=== PATIENT | female | born 1960 | race Two or more races ===

== ENCOUNTER 2019-06-27 20:00 | Emergency (ER) | payer BC, SELFPAY ==
[2019-06-27 20:02] VITALS: BP 160/94; PULSE 85; RESP 20; TEMP 36.7; O2SAT 98; BMI 33.6
--- NOTE | 2019-06-27 20:06 | XR_ITS ---
WS: [id number] Portable AP upright chest, 06/27/2019 Clinical Data: cp Comparison: None. Findings: No nodules, masses or effusions are seen. The heart is normal. The pulmonary vascularity is not increased. No pneumonia or pneumothorax is seen. The aortic arch and descending aorta are tortuo us. XR/XR chest 1V portable [id number] Impression: Atherosclerosis.
[2019-06-27 20:35] LABS: INR 0.87 (0.8-1.2)
[2019-06-27 20:44] LABS: Alanine Aminotransferase 15 U/L (0-33); Albumin Level 4.4 g/dL (3.5-5.2); Alkaline Phosphatase 88 IU/L (35-105); Anion Gap 16.8 (5-19); Aspartate Amino Transferase 15 U/L (0-32); Blood Urea Nitrogen 15 mg/dL (6-20); Calcium 9.8 mg/Dl (8.6-10.0); Carbon Dioxide 23 mmol/L (22-29); Chloride 103 mmol/L (98-107); Globulin 2.3 g/dL (1.3-4.6); Glomerular Filtration Rate 74.2 mL/min (90-130); Glucose 124 mg/dL (74-109); Potassium 3.8 mmol/L (3.5-5.1); Sodium 139 mmol/L (136-145); Total Bilirubin 0.3 mg/dL (0.15-1.2); Total Protein 6.7 g/dL (6.6-8.7)
[2019-06-27 20:49] LABS: Troponin(5th) Baseline 9 ng/mL (0-10)
[2019-06-27 21:36] LABS: Troponin 5 2HR 9.06 ng/mL (0-10); Troponin 5 2HR Delta 0.06 ABS# (0-10)
--- NOTE | 2019-06-27 22:06 | ECG_ITS ---
Measurements Intervals [place] Rate: 75 P: 5 CA: 151 QRS: -1 QRSD: 103 T: 69 QT: 412 QTc: 461 SINUS RHYTHM VOLTAGE CRITERIA FOR LVH [MEETS CRITERIA IN ONE OF: R(aVL), S(V1), R(V5), R (V5/V6)+S(V1)] NONSPECIFIC T-WAVE ABNORMALITY No previous ECG available for comparison Electronically Signed On 06-28-2019 13:39:14 CORPORATE COUNSELOR by Bre Hernandez M.D. [email or web address]
[2019-06-28 01:37] LABS: Basophils # 0.1 10^3/uL (0.0-0.1); Basophils % 0.8 %; Eosinophils # 0.1 10^3/uL (0.0-0.8); Eosinophils % 1.6 %; Hematocrit 44.4 % (37.0-47.0); Hemoglobin 14.3 g/dL (11.5-15.3); Lymphocytes # 2.6 10^3/uL (0.8-4.8); Lymphocytes % 32.4 %; Mean Corpuscular HGB Conc 32.2 g/dL (30.0-36.0); Mean Corpuscular Hemoglobin 29.9 pg (28.0-34.0); Mean Corpuscular Volume 92.9 fL (81-99); Mean Platelet Volume 12.5 fL (7.4-10.4); Monocytes # 0.7 10^3/uL (0.2-0.9); Monocytes % 8.5 %; Neutrophils # 4.5 10^3/uL (1.8-7.7); Neutrophils % 56.4 %; Nucleated Red Blood Cells % 0 %; Platelet Count 316 10^3/cmm (130-400); Red Blood Count 4.78 10^6/uL (4.1-5.3); Red Cell Distribution Width 13.5 % (12.1-15.1)
== END 2019-06-27 22:56 | disposition left against medical advice (07) ==
LOC: ER 21:02
PROVIDERS: Emergency Medicine; Emergency Provider Emergency Medicine
DX: Z53.21 Procedure and treatment not carried out due to patient leaving prior to being seen by health care provider (principal)
CPT/HCPCS: 36415; 71045; 80053; 84484; 85025; 85610; 93005; 99281

== ENCOUNTER 2019-07-27 07:33 | Outpatient (CLI) | payer BC, SELFPAY ==
--- NOTE | 2019-07-27 07:50 | ECG_ITS ---
NAME OF STUDY: LEXISCAN SESTAMIBI STRESS TEST INDICATION: Chest Pain, NOTE: Please note that this is the electrocardiogram portion of the Lexiscan/Sestamibi stress test. The perfusion scan will be documented separately. DATA: Baseline heart rate was 65 beats per minute. Baseline blood pressure was 173/107 millimeters of mercury. Target heart rate was 164. Maximum heart rate achieved was 118. which was 71% of the predicted target heart rate. Maximum blood pressure was 116/39 millimeters of mercury. The reason for ending the test was completion of the protocol. The patient experienced shortness of breath during the past which was then resolved. ELECTROCARDIOGRAM: BASELINE: Sinus rhythm. Normal axis. Otherwise, no ST-T changes suggestive of ischemia noted. No arrhythmia noted. EXERCISE: After Lexiscan injection, no ST-T changes suggestive of ischemic noted. No arrhythmia noted. CONCLUSION: Please note due to baseline abnormality of the EKG specificity and sensitivity of the EKG portion of LexiScan MIBI stress test will be low 1. EKG not suggestive of ischemia 2. Lexiscan injection unremarkable. 3. Perfusion scan will be documented separately. Electronically Signed On 07-27-2019 19:54:55 SUPERVISOR SIGN SHOP by Ronald Peoples M.D. [email or web address]
--- NOTE | 2019-07-27 07:51 | NMCV_ITS ---
NM josesito perf SPECT r/s* [id number] Shannon Fatima Age: 58 Gender: F : 1960 Exam Date: 07/27/2019 07:51 Ordering Phys: Kristina Brady XX Technologist: NADIA Haque Exam Location: [facility] Indications: CHEST PAIN STRESS TEST Please see separate stress test report in [facility] for full findings IMAGE PROTOCOL Rest/Stress 1 Lexiscan Day Radiopharmaceutical Dose (mCi) Administration Site Administered by Rest: Tc-99m 10.9 IV NADIA Haque Sestamibi Stress:Tc-99m 32.4 IV NADIA Arora Sestamibi Rest: 27-Jul-2019 60 Discovery 630 Stress: 27-Jul-2019 30 Discovery 630 0.4mg Lexiscan. Images obtained in supine and prone position. SPECT RESULTS Technical Quality: Good Raw Data Analysis: Breast attenuation, Subdiaphragmatic activity Image Corrections: Patient motion artifact - motion correction applied to stress images. Summed Stress Score: 3 Summed Rest Score: 3 Summed Difference Score: 3 PERFUSION FINDINGS Small to moderate area of decreased aseptic were noted in the basal inferolateral and mid anterolateral regions. Some reversibility was noted in these regions FUNCTIONAL RESULTS (calculated via Gated SPECT) Stress Image LV EF (%): 47 Stress EDV (mL):156 TID: 0.9 Stress ESV (mL):83 FUNCTIONAL FINDINGS: Segmental wall motion analysis revealing mild hypokinesia of the LV apex. IMPRESSIONS 1. Myocardial perfusion imaging revealing small to moderate area of decreased tracer uptake in the inferolateral and anterolateral regions with some reversibility, may suggest myocardial scarring with ischemia in the distribution of the circumflex/left anterior descending artery territory . 2. Slightly diminished LV ejection fraction of 47%. 3. LV wall motion analysis revealing mild hypokinesia of the LV apex. 4. Moderately dilated LV cavity with an end-systolic volume of 83 mL. No similar previous studies are available for comparison. Dr Johanny Michelle MD FAC (Electronically Signed) Final Date: 27 July 2019 20:44 S
[2019-07-27 08:14] VITALS: BMI 34.1
[2019-07-27] MEDS: regadenoson 0.4 Mg/5 ml Syringe IVP (09:45)
[2019-07-27 10:09] VITALS: BP 211/116; PULSE 80
--- NOTE | 2019-07-27 10:22 | PC.NURSE ---
STRESS TEST NOTE THE PATIENT'S BLOOD PRESSURE WAS 172/107 PRIOR TO STARTING THE STRESS TEST. THE PATIENT HELD HER 2 BP MEDS THIS AM BECAUSE SHE WASN'T FOR SURE IF SHE SHOULD TAKE THEM. THIS NURSE HAD HER TAKE HER LISINOPRIL AND HCTZ. DR ODELL WAS NOTIFIED IN PERSON AND VERBAL ORDERS WERE RECEIVED TO CONTINUE WITH THE LEXISCAN SESTAMIBI STRESS TEST.
== END 2019-07-27 07:34 | disposition home or self-care (01) ==
LOC: CDL 07:38
PROVIDERS: PCP Nurse Practitioner Family; Visit Provider Nurse Practitioner Family
DX: R07.9 Chest pain, unspecified (principal)
CPT/HCPCS: 78452; 93017; A9500; J2785

== ENCOUNTER 2019-08-18 15:00 | Outpatient (CLI) | payer BC, SELFPAY | END 2019-08-18 15:01 | disposition home or self-care (01) | LOC: SLEEP 08-19 09:00 | PROVIDERS: PCP Nurse Practitioner Family; Visit Provider Internal Medicine Cardiovascular Disease | DX: G47.33 Obstructive sleep apnea (adult) (pediatric) (principal) | CPT/HCPCS: G0399 ==

== ENCOUNTER 2019-08-26 09:57 | Outpatient (CLI) | payer BC, SELFPAY ==
--- NOTE | 2019-08-26 10:15 | USCV_ITS ---
Shannon Fatima Age: 58 Gender: F : 1960 Exam Date: 08/26/2019 10:23 Ordering Phys: Bre Hernandez MD ([email or web address]) Technologist: Marifer Augustin Exam Location: [facility] [place] Indication: ACCELERATED HPERTENSION BP: / HR: 71 Rhythm: Sinus Technical Quality: Adequate MEASUREMENTS (Male / Female) Normal Values 2D ECHO LV Diastolic Diameter PLAX 4.1 cm 4.2 - 5.9 / 3.9 - 5.3 cm LV Systolic Diameter PLAX 2.8 cm LV Chamber Size 3.1 cm IVS Diastolic Thickness 1.7 cm 0.6 - 1.0 / 0.6 - 0.9 cm IVS Systolic Thickness 1.9 cm LVPW Diastolic Thickness 1.2 cm 0.6 - 1.0 / 0.6 - 0.9 cm LVPW Systolic Thickness 1.8 cm RV Chamber Size 3.3 cm LVOT Diameter 2.0 cm LV Ejection Fraction 2D Teich 61.4 % LV Ejection Fraction MOD 2C 49.9 % LV Ejection Fraction 2C AL 57.6 % LA Diameter 3.1 cm LA Width 3.1 cm LA Height 5.0 cm RA Width 3.1 cm RA Height 4.0 cm Aorta at Sinotubular Diameter 3.1 cm M-MODE LV Diastolic Diameter MM 4.3 cm 4.2 - 5.9 / 3.9 - 5.3 cm LV Systolic Diameter MM 2.1 cm LV Ejection Fraction MM Teich 82.2 % IVS Diastolic Thickness MM 0.9 cm 0.6 - 1.0 / 0.6 - 0.9 cm IVS Systolic Thickness MM 1.3 cm LVPW Diastolic Thickness MM 1.1 cm 0.6 - 1.0 / 0.6 - 0.9 cm LVPW Systolic Thickness MM 1.7 cm RV Diastolic Diameter MM 1.2 cm Aortic Annulus Diameter 2.6 cm LA Ao Ratio MM 1.2 MV E Point Septal Separation 0.3 cm DOPPLER AV Peak Velocity 142.0 cm/s LVOT Peak Velocity 104.0 cm/s AV Area Cont Eq vti 2.6 cm squared AV Area Cont Eq pk 2.3 cm squared MV Area PHT 4.3 cm squared Mitral E to A Ratio 0.7 MV E' Velocity 5.0 cm/s Mitral E to MV E' Ratio 8.4 Mitral E to LV E' Lateral Ratio 12.9 Mitral E to LV E' Septal Ratio 6.2 TR Peak Velocity 158.2 cm/s TR Peak Gradient 10.0 mmHg TR Mean Velocity 118.3 cm/s TR Mean Gradient 6.3 mmHg TR Velocity Time Integral 38.9 cm TV Peak E Velocity 52.0 cm/s Right Atrial Pressure 3.0 mmHg Pulmonary Artery Systolic Pressu 13.0 mmHg PV Peak Velocity 62.0 cm/s RV Acceleration Time 0.2 s RV Ejection Time 0.4 s RV AcT/ET 0.5 FINDINGS Left Ventricle Normal left ventricular cavity size. Increased left ventricular wall thickness. Moderate concentric left ventricular hypertrophy. Normal left ventricular systolic function. Left ventricular ejection fraction is estimated at 65 %. No regional wall motion abnormalities. Grade I/IV diastolic dysfunction (abnormal relaxation filling pattern), normal to mildly elevated filling pressures. Right Ventricle Normal right ventricular size and systolic function. Tricuspid valve regurgitant jet is inadequate for estimation of right ventricular systolic pressure. Right Atrium Normal right atrial size. Right atrial pressure estimated at 3 mmHg. Left Atrium Upper normal left atrial size. Mitral Valve Mildly thickened mitral valve. No mitral valve stenosis. Trace mitral valve regurgitation. Aortic Valve Aortic valve not well visualized. No aortic valve stenosis. No aortic valve regurgitation. Tricuspid Valve Structurally normal tricuspid valve. No tricuspid valve stenosis. Trace tricuspid valve regurgitation. Pulmonic Valve Pulmonic valve not well visualized. No pulmonary valve stenosis. No significant pulmonary valve regurgitation. Pericardium Trivial pericardial effusion. No evidence of hemodynamic compromise. Aorta Normal-sized aortic root. CONCLUSIONS 1. Normal left ventricular cavity size. Moderate concentric left ventricular hypertrophy. Normal left ventricular systolic function. Left ventricular ejection fraction is estimated at 65 %. No regional wall motion abnormalities. Grade I/IV diastolic dysfunction (abnormal relaxation filling pattern), normal to mildly elevated filling pressures. 2. Normal right ventricular size and systolic function. 3. Right atrial pressure estimated at 3 mmHg. 4. No significant valvular abnormality. 5. No prior similar studies to compare. Bre Hernandez MD (Electronically Signed) Final Date: 29 August 2019 15:45 S
== END 2019-08-26 09:58 | disposition home or self-care (01) ==
PROVIDERS: Family Provider Nurse Practitioner Family; PCP Nurse Practitioner Family; Visit Provider Internal Medicine Cardiovascular Disease
DX: I10 Essential (primary) hypertension (principal); I08.1 Rheumatic disorders of both mitral and tricuspid valves
CPT/HCPCS: 93306

== ENCOUNTER → 2019-09-05 08:19 | Outpatient (BNVA) | payer BC, SELFPAY | PROVIDERS: PCP Nurse Practitioner Family; Visit Provider Internal Medicine Cardiovascular Disease | DX: I10 Essential (primary) hypertension (principal) | CPT/HCPCS: 80048; 83735; 83880 ==

== ENCOUNTER 2022-01-14 05:58 | Emergency (ER) | payer BC, SELFPAY ==
[2022-01-14 06:01] VITALS: BMI 34.4
[2022-01-14 06:05] VITALS: BP 118/76; PULSE 85; RESP 18; O2SAT 95
--- NOTE | 2022-01-14 06:06 | XRR_ITS ---
PROCEDURE INFORMATION: Exam: XR Right Knee Exam date and time: 01/14/2022 6:14 AM Age: 61 years old Clinical indication: Injury or trauma; Fall; Blunt trauma; Right; Injury details: Fell last pm pain to knee; Additional info: Pain/fall TECHNIQUE: Imaging protocol: Radiologic exam of the Right knee. Views: 3 views. COMPARISON: No relevant prior studies available. FINDINGS: Bones/joints: Degenerative change and joint effusion. No acute bony injury or malalignment in the visualized right knee. Soft tissues: No radiopaque foreign body. XR/XR knee RT 3V* [id number] IMPRESSION: Joint effusion, without acute bony injury.
--- NOTE | 2022-01-14 06:07 | ED_ITS ---
HPI - Fall General: Chief Complaint: Fall Stated Complaint: fall unable to walk Time Seen by Provider: 01/14/22 06:06 Source: patient Mode of arrival: wheelchair History of Present Illness: 61-year-old female presents emergency room with complaint of right knee pain. She was going up some stairs yesterday felt a popping sensation has not been able to bear weight since. No previous injury or surgeries to knee no other injuries at home. Strike her head she did not lose consciousness. MD complaint: fall Onset (ago): hour(s) Fall from: standing Place fall occurred: home Loss of consciousness: None Prolonged down time: no Symptoms prior to fall: none Context: tripped/slipped and other (Right knee popped ) Location of injury - extremities: Right: knee Severity: mild Quality: sharp Associated symptoms-after fall: Denies abdominal pain, chest pain, confusion, difficulty walking, headache(s), hematuria, lightheadedness, neck pain, numbness, short of breath, vertigo or weakness Review of Systems Const: Denies: fever(s), chills, body aches, change in appetite, fatigue or malaise ENMT: Denies: throat pain, ear or mastoid pain, nasal discharge or nasal congestion Card: Denies: chest pain or lightheadedness Resp: Denies: dyspnea, productive cough or non-productive cough GI: Denies: abdominal pain : Denies: hematuria Musc: Reports: joint pain and joint swelling; Denies: neck pain Skin/Breast: Denies: rash or pruritus Neuro: Denies: headache(s), difficulty walking, vertigo or confusion PFSH ED PFSH: Medical History HTN (hypertension) Obesity Sleep apnea Smoker Surgical History History of hysterectomy Social History Smoking and tobacco status: former smoker Quit status (tobacco): not considering quitting Second hand smoke exposure: Yes Course Vital Signs: Vital signs: Vital Signs Pulse Rate 72 01/14/22 06:27 Respiratory Rate 16 01/14/22 06:27 Blood Pressure 136/66 01/14/22 06:27 Pulse Oximetry 98 01/14/22 06:27 Oxygen Delivery Me thod 01/14/22 06:27 MDM - Fall Medical Decision Making X-ray negative of the right knee. Placed in a knee immobilizer nonweightbearing on crutches and referred to orthopedics diclofenac given for discomfort advised icing knee as needed for discomfort. Medical Records I reviewed the patient's medical records. Lab Data I reviewed the patient's lab results. Discharge Plan Discharge Patient Disposition: Home Clinical Impression: Right knee sprain Condition: Stable Prescriptions: New diclofenac sodium 75 mg tablet,delayed release (DR/EC) 75 mg PO Q12H PRN (Reason: pain) Qty: 20 0RF No Action hydrochlorothiazide 25 mg tablet 75 mg PO DAILY Qty: 270 3RF amlodipine 5 mg tablet See Rx Instructions .ROUTE .COMPLEX Qty: 90 3RF Dose Instruction: TAKE 1 TABLET BY MOUTH EVERY DAY Rx Instructions: TAKE 1 TABLET BY MOUTH EVERY DAY lisinopril 20 mg tablet 40 mg PO DAILY Discharge Orders: Discharge ED (Routine); Ordered 01/14/22 Ordered By: Amrit Lester Referrals: Kristina Brady FNP [Primary Care Provider] - Discharge Diet: Usual diet Discharge Activity: Limit activity as instructed Patient Instructions: Opioid Safety Activity Restrictions/Additional Instructions: Nonweightbearing on the right leg. Wear knee immobilizer and use crutches until cleared. manpower development manager will make arrangements for her to follow-up with orthopedics. Coding Level of Care Code ED Business Services Vice President for Clarisse Valencia
[2022-01-14 06:27] VITALS: BP 136/66; PULSE 72; RESP 16; O2SAT 98
--- NOTE | 2022-01-14 08:49 | DCPLANNER ---
Addendum entered by Sayra Espinosa 01/23/22 12:04: Patient had a follow up appointment scheduled for 01.15.[address] Grimm at ortho - patient did attend appointment. Original Note: sales performance manager had message to schedule a follow up appointment for patient with ortho. sales performance manager sent patients information to the front office staff at ortho. Patients information will be printed and reviewed. Clinic will call patient with appointment information.
== END 2022-01-14 06:44 | disposition home or self-care (01) ==
PROVIDERS: Emergency Provider Family Medicine; PCP Nurse Practitioner Family
DX: S83.91XA Sprain of unspecified site of right knee, initial encounter (principal); X58.XXXA Exposure to other specified factors, initial encounter
CPT/HCPCS: 29530; 73562; 99283; E0114

== ENCOUNTER 2022-01-16 08:41 | Day surgery (SDC) | payer OTHER, BC, SELFPAY ==
--- NOTE | 2022-01-16 08:12 | W.PM.OPSUD ---
Surgery/Procedure H&P Update DATE OF PROCEDURE: January 16, 2022 DATE H&P PERFORMED: 12/31/21 H&P UPDATE INFORMATION: I have reviewed H&P completed within last 30 days PLANNED PROCEDURE: Operation Date: 01/16/22 10:25 Proposed Procedures p Left carpal tunnel release:35008,G56.02(Left) - Jos Grimm MD
[2022-01-16 09:20] VITALS: BP 122/80; PULSE 76; RESP 16; TEMP 36.9; O2SAT 95
[2022-01-16] MEDS: sodium chloride 0.9% 1,000 ML 30 ML IV (10:04)
--- NOTE | 2022-01-16 10:23 | ANES.PREANE2 ---
Pre-Anesthetic Assessment Height/Weight: Height 1.7 m Weight 99.79 kg Temp Pulse Resp BP Pulse Ox O2 Del Method 98.4 F 76 16 122/80 95 01/16/22 09:20 01/16/22 09:20 01/16/22 09:20 01/16/22 09:20 01/16/22 09:20 01/16/22 09:21 Preop Diagnosis: Carpal tunnel syndrome right Operation Date: 01/16/22 10:25 Proposed Procedures p Left carpal tunnel release:50151,G56.02(Left) - Jos Grimm MD Familial anesthetic complications: none Was Beta [place] taken within 24 hours: N/A Was Clonidine taken within 24 hours: N/A Last intake: Intake Last Liquid Date 01/15/22 Last Liquid Time 23:50 Last Solid Date 01/15/22 Last Solid Time 19:00 Social Tobacco and No alcohol Exam alert, oriented x 3 and regular rate & rhythm Airway Submandibular: within normal limits Cervical ROM: within normal limits Mallampati: Class II Dentition: false (upper) Pulmonary Chronic Obstructive Pulmonary Disease and Sleep Apnea CV/HEM Hypertension Metabolic Morbid Obesity Anesthetic Plan ASA status: 3 Anesthesia: MAC and Regional (specify below) (Wendi muñoz) Medications/Allergies Home Medications Medication Instructions Recorded Confirmed Last Taken Type lisinopril 20 mg tablet 40 mg PO DAILY 08/10/19 01/16/22 01/15/22 06:00 History hydrochlorothiazide 25 mg tablet 75 mg PO DAILY #270 tabs 01/17/20 01/16/22 01/16/22 06:00 Rx diclofenac sodium 75 mg 75 mg PO Q12H PRN pain #20 tabs 01/14/22 01/16/22 01/15/22 08:00 Rx tablet,delayed release amlodipine 5 mg tablet 5 mg PO DAILY 01/15/22 01/16/22 01/16/22 06:00 History hydrocodone 5 mg-acetaminophen 325 1 tab PO Q4H #15 tabs 01/16/22 Unknown Rx mg tablet Allergies Allergy/AdvReac Type Severity Reaction Status Date / Time No Known Allergies Allergy Verified 01/15/22 07:57 Current Medications Generic Name Dose Route Start Last Admin Trade Name Freq PRN Reason Stop Dose Admin Sodium Chloride 1,000 mls @ 30 mls/hr 01/16/22 09:00 01/16/22 10:04 Sodium Chloride 0.9% IV 01/17/22 08:59 30 mls/hr .Q24H MARK Administration PFSH Anesthesia Medical History HTN (hypertension) Obesity Sleep apnea Smoker Surgical History History of hysterectomy Social History Smoking and tobacco status: former smoker Quit status (tobacco): not considering quitting Second hand smoke exposure: Yes Data Anesthesia Cardiac Studies: Echocardiogram Ultrasound 08/26/19 Sestamibi Stress Test (Cardiology) 07/27/19
[2022-01-16] MEDS: ceFAZolin 2,000 MG in sodium chloride 0.9% (plus) 50 ML 100 MG IV (11:09)
[2022-01-16 11:58] VITALS: BP 133/76; PULSE 74; RESP 16; TEMP 36.2; O2SAT 94
--- NOTE | 2022-01-16 12:01 | PM.OP ---
Operative Report Date of procedure: January 16, 2022 Pre-op diagnosis: Preop Diagnosis Carpal tunnel syndrome right Post-op diagnosis: same Post-op diagnosis: Same Procedure done: Left carpal tunnel release Pathology: none sent Surgeon: Jos Grimm Anesthesia: Nerve Block ([place] block) Estimated blood loss (mL): 2 Tourniquet time (min): 20 Findings: No masses or space-occupying lesions were seen within the carpal tunnel Condition: stable Disposition: PACU Procedure: Patient was taken to the operating room and anesthesia provided by the anesthesia service. She was prepped and draped with the arm exposed. A timeout was performed. A 3 cm long incision was made in line with the fourth ray from the distal edge of the carpal tunnel extending proximally. The subcutaneous fat and palmar fascia was divided with a scalpel blade. Under loupe magnification the ulnar neurovascular bundle was identified distally. A hemostat could be passed under the transverse carpal ligament allowing the distal 25% to be divided. A slotted guide was then passed beneath the transverse carpal ligament and the middle 50% divided. Blunt scissors were then passed over the guide freeing the proximal ligament. The tourniquet was deflated. Hemostasis provided with electrocautery. Wound edges were infiltrated with 10 cc of a half percent Marcaine solution. Skin edges were reapproximated with 3-0 Prolene. Sterile dressings were applied. The patient was taken to the recovery room in stable condition
[2022-01-16 12:04] VITALS: BP 135/90; PULSE 69; RESP 18; O2SAT 95
[2022-01-16 12:19] VITALS: BP 121/73; PULSE 75; RESP 18; TEMP 36.8; O2SAT 97
--- NOTE | 2022-01-16 13:46 | ANE.PACU2 ---
Inpatient post-anesthesia follow up: Airway intact: Yes Vital signs: Temperature 98.2 F Pulse Rate 75 Respiratory Rate 18 Blood Pressure 121/73 Pulse Oximetry 97 Oxygen Delivery Me thod Room Air Oxygen Flow Rate Fraction of Inspir ed Oxygen Hydration adequate: Yes Nausea and vomiting: No Pain level: 1 Mental status: Baseline
== END 2022-01-16 12:35 | disposition home or self-care (01) ==
PROVIDERS: PCP Nurse Practitioner Family; Visit Provider Orthopaedic Surgery
PROC: (CPT 64721; principal; 2022-01-16 10:15)
DX: G56.01 Carpal tunnel syndrome, right upper limb (principal); J44.9 Chronic obstructive pulmonary disease, unspecified; G47.30 Sleep apnea, unspecified; I10 Essential (primary) hypertension; E66.01 Morbid (severe) obesity due to excess calories; Z68.34 Body mass index [BMI] 34.0-34.9, adult; F17.200 Nicotine dependence, unspecified, uncomplicated
CPT/HCPCS: 64721; J2704; J3490; J7030

== ENCOUNTER 2022-02-06 06:23 | Day surgery (SDC) | payer OTHER, BC, SELFPAY ==
[2022-02-05 13:40] VITALS: BMI 33.6
[2022-02-06 06:52] VITALS: BP 129/78; PULSE 78; RESP 18; TEMP 36.8; O2SAT 99
[2022-02-06] MEDS: sodium chloride 0.9% 1,000 ML 30 ML IV (07:14)
--- NOTE | 2022-02-06 08:22 | ANES.PREANE2 ---
Pre-Anesthetic Assessment Height/Weight: Height 1.7 m Weight 97.522 kg Temp Pulse Resp BP Pulse Ox O2 Del Method 98.2 F 78 18 129/78 99 02/06/22 06:52 02/06/22 06:52 02/06/22 06:52 02/06/22 06:52 02/06/22 06:52 02/06/22 06:52 Preop Diagnosis: Carpal tunnel syndromeLeft Operation Date: 02/06/22 08:00 Proposed Procedures p Right carpal tunnel release:88264,G56.01(Right) - Jos Grimm MD Familial anesthetic complications: None Was Beta [place] taken within 24 hours: N/A Was Clonidine taken within 24 hours: N/A Last intake: Intake Last Liquid Date 02/05/22 Last Liquid Time 23:59 Last Solid Date 02/05/22 Last Solid Time 17:30 Social Tobacco and No alcohol Exam alert, oriented x 3 and regular rate & rhythm Airway Submandibular: within normal limits Cervical ROM: within normal limits Mallampati: Class II Dentition: false (upper) Pulmonary Chronic Obstructive Pulmonary Disease and Sleep Apnea CV/HEM Hypertension Metabolic Morbid Obesity Anesthetic Plan ASA status: 3 Anesthesia: MAC and Regional (specify below) (Wendi muñoz) Medications/Allergies Home Medications Medication Instructions Recorded Confirmed Last Taken Type lisinopril 20 mg tablet 40 mg PO DAILY 08/10/19 02/06/22 02/05/22 History hydrochlorothiazide 25 mg tablet 75 mg PO DAILY #270 tabs 01/17/20 02/06/22 02/05/22 Rx amlodipine 5 mg tablet 5 mg PO DAILY 01/15/22 02/06/22 02/06/22 History Allergies Allergy/AdvReac Type Severity Reaction Status Date / Time No Known Allergies Allergy Verified 01/21/22 14:39 Current Medications Generic Name Dose Route Start Last Admin Trade Name Freq PRN Reason Stop Dose Admin Sodium Chloride 1,000 mls @ 30 mls/hr 02/06/22 06:30 02/06/22 07:14 Sodium Chloride 0.9% IV 02/07/22 06:29 30 mls/hr .Q24H MARK Administration PFSH Anesthesia Medical History HTN (hypertension) Obesity Sleep apnea Smoker Surgical History (Updated 02/06/22 @ 07:47 by Toya Gómez) History of hysterectomy Social History Smoking and tobacco status: former smoker Quit status (tobacco): not considering quitting Second hand smoke exposure: Yes Data Anesthesia Cardiac Studies: Echocardiogram Ultrasound 08/26/19 Sestamibi Stress Test (Cardiology) 07/27/19
[2022-02-06] MEDS: ceFAZolin 2,000 MG in sodium chloride 0.9% (plus) 50 ML 100 MG IV (08:39)
--- NOTE | 2022-02-06 08:43 | W.PM.OPSUD ---
Surgery/Procedure H&P Update DATE OF PROCEDURE: February 06, 2022 DATE H&P PERFORMED: 01/21/22 H&P UPDATE INFORMATION: I have reviewed H&P completed within last 30 days PREOP DIAGNOSIS: Carpal tunnel syndromeLeft PLANNED PROCEDURE: Operation Date: 02/06/22 08:00 Proposed Procedures p Right carpal tunnel release:[id number],G56.01(Right) - Jos Grimm MD
--- NOTE | 2022-02-06 09:22 | PM.OP ---
Operative Report Date of procedure: February 06, 2022 Pre-op diagnosis: Preop Diagnosis Carpal tunnel syndromeLeft Post-op diagnosis: same Post-op diagnosis: Same Procedure done: Right carpal tunnel release Pathology: none sent Surgeon: Jos Grimm Anesthesia: Nerve Block ([place] block) Estimated blood loss (mL): 2 Tourniquet time (min): 20 Findings: No masses or space-occupying lesion seen in the right carpal tunnel Condition: stable Disposition: PACU Procedure: Patient was taken to the operating room and anesthesia provided by the anesthesia service. She was prepped and draped with the arm exposed. A timeout was performed. A 3 cm long incision was made in line with the fourth ray from the distal edge of the carpal tunnel extending proximally. The subcutaneous fat and palmar fascia was divided with a scalpel blade. Under loupe magnification the ulnar neurovascular bundle was identified distally. A hemostat could be passed under the transverse carpal ligament allowing the distal 25% to be divided. A slotted guide was then passed beneath the transverse carpal ligament and the middle 50% divided. Blunt scissors were then passed over the guide freeing the proximal ligament. The tourniquet was deflated. Hemostasis provided with electrocautery. Wound edges were infiltrated with 10 cc of a half percent Marcaine solution. Skin edges were reapproximated with 3-0 Prolene. Sterile dressings were applied. The patient was taken to the recovery room in stable condition
[2022-02-06 09:26] VITALS: BP 107/66; PULSE 74; RESP 20; TEMP 36.8; O2SAT 96
[2022-02-06 09:30] VITALS: BP 132/76; PULSE 72; RESP 18; O2SAT 98
[2022-02-06 09:35] VITALS: BP 108/80; PULSE 72; RESP 120; TEMP 36.7; O2SAT 97
[2022-02-06 09:45] VITALS: BP 127/76; PULSE 75; RESP 18; O2SAT 94
--- NOTE | 2022-02-06 13:41 | ANE.PACU2 ---
Inpatient post-anesthesia follow up: Airway intact: Yes Vital signs: Temperature 98.0 F Pulse Rate 75 Respiratory Rate 18 Blood Pressure 127/76 Pulse Oximetry 94 Oxygen Delivery Me thod Room Air Oxygen Flow Rate 6 Fraction of Inspir ed Oxygen Hydration adequate: Yes Nausea and vomiting: No Pain level: 2 Mental status: Baseline
== END 2022-02-06 10:10 | disposition home or self-care (01) ==
PROVIDERS: PCP Nurse Practitioner Family; Visit Provider Orthopaedic Surgery
PROC: (CPT 64721; principal; 2022-02-06 08:00)
DX: G56.01 Carpal tunnel syndrome, right upper limb (principal); I10 Essential (primary) hypertension; J44.9 Chronic obstructive pulmonary disease, unspecified; G47.30 Sleep apnea, unspecified; E66.01 Morbid (severe) obesity due to excess calories; Z68.33 Body mass index [BMI] 33.0-33.9, adult; Z87.891 Personal history of nicotine dependence; Z77.22 Contact with and (suspected) exposure to environmental tobacco smoke (acute) (chronic)
CPT/HCPCS: 29848; J2704; J3010; J3490; J7030

== ENCOUNTER 2023-07-03 13:31 | Outpatient (CLI) | payer OTHER, SELFPAY ==
--- NOTE | 2023-07-03 13:36 | MR_ITS ---
WS: [id number] MRI LEFT KNEE NONCONTRAST TECHNIQUE: Axial PD, coronal PD fat sat, coronal PD, sagittal PD, and sagittal PD fat-sat images obta ined. CLINICAL INFORMATION: L KNEE PAIN COMPARISON: None. FINDINGS: Moderate to advanced tricompartmental arthritis. Moderate suprapatellar effusion. Advanced chondromal acia patella. Medial and lateral patellar retinaculum appear intact. Lobulated popliteal cyst measuri ng 6.1 x 1.8 cm with internal septations. Hypertrophic changes along the joint line. Distal quadricep s and patella tendons are intact. Advanced joint space narrowing medial and lateral joint compartment s with grade IV chondromalacia. Subchondral edema worse in the medial joint compartment. Chronic thin nay and degeneration of the medial and lateral meniscus. Chronic intrasubstance signal abnormality m edial meniscus. Peripheral extrusion of the medial meniscus. Soft tissue subcutaneous edema about the knee. Medial and lateral collateral ligaments are intact. IMPRESSION: 1. 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 2. Moderate subpatellar effusion. 3. Jicv-yk-slmj articulation in the medial and lateral joint compartment worse in the medial joint c ompartment with subchondral edema. Chronic thinning and peripheral extrusion of the medial meniscus. 4. ACL and PCL are intact. 5. Lobulated popliteal cyst with septations measuring 6.1 x 1.8 cm. 6. Advanced chondromalacia patella. 7. Medial and lateral collateral ligaments appear intact. Outbridge grading: grade IV: full-thickness cartilage loss with underlying bone reactive changes
== END 2023-07-03 13:32 | disposition home or self-care (01) ==
LOC: RAD 13:32
PROVIDERS: PCP Nurse Practitioner Family; Visit Provider Nurse Practitioner Family
DX: M17.12 Unilateral primary osteoarthritis, left knee (principal); M22.42 Chondromalacia patellae, left knee; M71.22 Synovial cyst of popliteal space [Baker], left knee
CPT/HCPCS: 73721

== ENCOUNTER → 2023-07-10 11:53 | Outpatient (BNVA) | payer OTHER, SELFPAY | PROVIDERS: PCP Nurse Practitioner Family; Visit Provider Student in an Organized Health Care Education/Training Program | DX: M17.0 Bilateral primary osteoarthritis of knee | CPT/HCPCS: 73560; 73565 ==

== ENCOUNTER 2023-09-18 06:01 | Outpatient (CLI) | payer OTHER, SELFPAY ==
--- NOTE | 2023-09-18 06:15 | USCV_ITS ---
Shannon Fatima Age: 62 Gender: F : 1960 Exam Date: 09/18/2023 06:35 Ordering Phys: NOT ON FILE, DOCTOR XX Technologist: Greg Birmingham Exam Location: [facility]_ Indication: HISTORY: PROCEDURES: FINDINGS: The veins were found to be easily compressible with spontaneous blood flow. Non pulsatile flow pattern. CONCLUSIONS 1. No evidence of DVT in the above-mentioned identifiable veins. 2. No significant venous reflux were noted either in the deep or in the superficial veins. 3. Normal caliber veins bilaterally Dr Johanny Michelle MD [facility] (Electronically Signed) Final Date: 18 September 2023 21:01 S
== END 2023-09-18 06:02 | disposition home or self-care (01) ==
LOC: RAD 06:01
PROVIDERS: PCP Nurse Practitioner Family; Visit Provider Nurse Practitioner
DX: I83.893 Varicose veins of bilateral lower extremities with other complications (principal)
CPT/HCPCS: 93970

== ENCOUNTER 2023-11-10 16:44 | Outpatient (CLI) | payer OTHER, SELFPAY ==
--- NOTE | 2023-11-10 17:00 | CT_ITS ---
WS: [id number] CT LEFT KNEE, NONCONTRAST [facility] TECHNIQUE: Noncontrast CT of the LEFT knee to include the LEFT hip and ankle. CLINICAL INFORMATION: LEFT TOTAL KNEE ARTHROPLASTY DLP: 1939.[address] scans at [facility] use at least one of these dose optimization techniques: automated e xposure control; mA and/or kV adjustment per patient size (includes targeted exams where dose is matc hed to clinical indication); or iterative reconstruction. FINDINGS: Advanced tricompartmental arthritis LEFT knee worse in the medial joint compartment. Hypertrophic marcy nges along the joint line. Hypertrophic patella. Moderate suprapatellar effusion. Small lobulated pop liteal cyst. Moderate degenerative arthritis sacroiliac joints. Moderate degenerative arthritis LEFT greater than RIGHT hips with hypertrophic changes LEFT hip. A few sigmoid diverticuli. Prior hysterec [place]. CT/CT knee LT [facility] [id number] IMPRESSION: Images obtained for preoperative purposes.
== END 2023-11-10 16:45 | disposition home or self-care (01) ==
PROVIDERS: PCP Nurse Practitioner Family; Visit Provider Student in an Organized Health Care Education/Training Program
DX: M13.862 Other specified arthritis, left knee (principal); M71.22 Synovial cyst of popliteal space [Baker], left knee; M25.462 Effusion, left knee; M13.852 Other specified arthritis, left hip; M13.851 Other specified arthritis, right hip; Z98.890 Other specified postprocedural states
CPT/HCPCS: 73700

== ENCOUNTER 2023-11-16 16:02 | Outpatient (CLI) | payer OTHER, SELFPAY ==
[2023-11-16 16:41] LABS: Basophils # 0.1 10^3/uL (0.0-0.1); Basophils % 0.7 %; Eosinophils # 0.1 10^3/uL (0.0-0.8); Eosinophils % 1.5 %; Hematocrit 39.3 % (36-47); Lymphocytes # 2.3 10^3/uL (0.8-4.8); Lymphocytes % 27.8 %; Mean Corpuscular HGB Conc 33.6 g/dL (30-55); Mean Corpuscular Hemoglobin 30.3 pg (27-33); Mean Corpuscular Volume 90.3 fl (85-98); Mean Platelet Volume 11.3 fL (7.4-10.4); Monocytes # 0.7 10^3/uL (0.2-0.9); Monocytes % 8.7 %; Neutrophils # 4.93 10^3/uL (1.8-7.7); Neutrophils % 61.1 %; Nucleated Red Blood Cells % 0 %; Platelet Count 291 10^3/cmm (157-399); Red Blood Count 4.35 10^6/uL (3.85-5.65); Red Cell Distribution Width 13.7 % (12.1-15.1); White Blood Count 8.08 10^3/uL (3.29-11.43)
[2023-11-16 17:35] LABS: Alanine Aminotransferase 18 U/L (0-33); Albumin Level 4.2 g/dL (3.5-5.2); Alkaline Phosphatase 95 U/L (35-105); Anion Gap 14.2 (5-19); Aspartate Amino Transferase 13 U/L (0-32); Blood Urea Nitrogen 20 mg/dL (8-23); Calcium 8.1 mg/dL (8.5-10.5); Carbon Dioxide 25 mmol/L (22-29); Chloride 104 mmol/L (98-107); Globulin 2.8 g/dL (1.3-4.6); Glomerular Filtration Rate 85.1 mL/min (90-130); Glucose 91 mg/dL (65-115); Osmolality Calculated 292 mOsm/kg (285-295); Potassium 3.2 mmol/L (3.5-5.1); Sodium 140 mmol/L (136-145); Total Bilirubin 0.2 mg/dL (0.15-1.2)
[2023-11-16 18:59] LABS: Add Urine Microscopic? YES; Bilirubin Urine 1+ (Negative); Blood Urine Neg (Negative); Glucose Urine UA Norm (Normal); Ketones Urine 1+ (Negative); Leukocyte Esterase Urine 2+ (Negative); Nitrate Urine Negative (Negative); Protein Urine Trace (Negative); Specific Gravity, Urine 1.025 (1.005-1.030); Urine Appearance Cloudy (CLEAR); Urine Color Dark Yellow (Yellow); Urobilinogen Urine Norm (Negative); pH Urine 5 (5-7)
[2023-11-16 19:00] LABS: Add Urine Culture? No; Bacteria Urine 2+ /hpf; Mucus Urine 1+ /hpf
== END 2023-11-16 16:03 | disposition home or self-care (01) ==
LOC: LAB 16:03
PROVIDERS: PCP Nurse Practitioner Family; Visit Provider Student in an Organized Health Care Education/Training Program
DX: Z01.818 Encounter for other preprocedural examination (principal)
CPT/HCPCS: 80053; 81001; 85025

== ENCOUNTER 2023-11-23 14:21 | Observation (INO) | payer OTHER, SELFPAY ==
[2023-11-23] VITALS (14 sets, daily range): BP systolic 108–127; BP diastolic 67–81; PULSE 72–95; RESP 16–20; TEMP 36.2–37.3; O2SAT 94–98; BMI 35.2
[2023-11-23 11:07] LABS: Add Urine Microscopic? NO; Charge for UA Resulting for Rev
[2023-11-23 11:10] LABS: Bilirubin Urine Neg (Negative); Blood Urine Neg (Negative); Glucose Urine UA Norm (Normal); Ketones Urine Negative (Negative); Leukocyte Esterase Urine Negative (Negative); Nitrate Urine Negative (Negative); Protein Urine Neg (Negative); Urine Appearance Clear (CLEAR); Urine Color Yellow (Yellow); Urobilinogen Urine Neg (Negative); pH Urine 7 (5-7)
[2023-11-23 11:35] LABS: Basophils # 0.1 10^3/uL (0.0-0.1); Basophils % 0.8 %; Eosinophils # 0.1 10^3/uL (0.0-0.8); Eosinophils % 2.1 %; Hematocrit 38.6 % (36-47); Lymphocytes # 1.7 10^3/uL (0.8-4.8); Lymphocytes % 26.6 %; Mean Corpuscular HGB Conc 33.7 g/dL (30-55); Mean Corpuscular Hemoglobin 30.2 pg (27-33); Mean Corpuscular Volume 89.6 fl (85-98); Mean Platelet Volume 10.8 fL (7.4-10.4); Monocytes # 0.6 10^3/uL (0.2-0.9); Monocytes % 8.9 %; Neutrophils # 3.88 10^3/uL (1.8-7.7); Neutrophils % 61.3 %; Nucleated Red Blood Cells % 0 %; Platelet Count 262 10^3/cmm (157-399); Red Blood Count 4.31 10^6/uL (3.85-5.65); Red Cell Distribution Width 13.4 % (12.1-15.1); White Blood Count 6.32 10^3/uL (3.29-11.43)
[2023-11-23] MEDS: acetaminophen 1,000 MG/100 ML PIGGYBACK 400 MG IV ×3 (11:47→22:20)
[2023-11-23] MEDS: ketorolac 30 mg/mL INJ IVP (11:49)
[2023-11-23] MEDS: scopolamine 1.5 Patch 1 PATCH TRANSDERMA (11:49)
--- NOTE | 2023-11-23 11:49 | P.ANESASSM_ITS ---
Pre-Anesthetic Assessment Height/Weight: Height 1.7 m Weight 102.058 kg Temp Pulse Resp BP Pulse Ox O2 Del Method 99.1 F 72 18 111/77 96 Room Air 11/23/23 10:53 11/23/23 10:53 11/23/23 10:53 11/23/23 10:53 11/23/23 10:53 11/23/23 11:35 Operation Date: 11/23/23 13:45 Proposed Procedures p Reji Robot Total Knee Arthroplasty(Left) - Jacob Ghotra DO Familial anesthetic complications: none Was Beta [place] taken within 24 hours: N/A Was Clonidine taken within 24 hours: N/A Last intake: Intake Last Liquid Date 11/22/23 Last Liquid Time 21:00 Last Solid Date 11/22/23 Last Solid Time 21:00 Social Tobacco and No alcohol Exam alert, oriented x 3 and regular rate & rhythm Airway Submandibular: within normal limits Cervical ROM: within normal limits Mallampati: Class II Dentition: false Pulmonary Chronic Obstructive Pulmonary Disease and Sleep Apnea CV/HEM Hypertension Metabolic Morbid Obesity Musc/[facility] Lower Back Pain and Osteoarthritis/DJD Anesthetic Plan ASA status: 3 Anesthesia: Regional (specify below) (SAB with left adductor blk) Medications/Allergies Home Medications Medication Instructions Recorded Confirmed Last Taken Type hydrochlorothiazide 25 mg tablet 75 mg (3 x 25 mg) PO DAILY #270 01/17/20 11/23/23 11/22/23 Rx tabs amlodipine 5 mg tablet 5 mg PO DAILY 01/15/22 11/23/23 11/23/23 History diclofenac potassium 50 mg tablet 50 mg PO Q8H PRN pain #60 tabs 02/27/22 11/23/23 11/05/23 Rx potassium chloride 8 mEq 8 meq PO DAILY #2 tabs 11/20/23 11/23/23 11/22/23 Rx tablet,extended release sulfamethoxazole 800 1 tab PO BID 5 days #10 tabs 11/20/23 11/23/23 11/22/23 Rx mg-trimethoprim 160 mg tablet (Bactrim DS) Allergies Allergy/AdvReac Type Severity Reaction Status Date / Time No Known Allergies Allergy Verified 11/20/23 09:50 PFSH Anesthesia Medical History Obesity Sleep apnea HTN (hypertension) Smoker Surgical History History of hysterectomy Social History Smoking and tobacco/nicotine status: current every day tobacco/nicotine user Quit status (tobacco/nicotine): not considering quitting Second hand smoke exposure: Yes Data Anesthesia 11/23/23 11:23 11/23/23 11:23 Short CBC 11/23/23 Range/Units 11:23 WBC 6.32 (3.29-11.43) 10^3/uL Hgb 13.00 (11.27-16.99) g/dL Hct 38.6 (36-47) % MCV 89.6 (85-98) fl Plt Count 262 (157-399) 10^3/cmm Neut % (Auto) 61.3 % Neut # (Auto) 3.88 (1.8-7.7) 10^3/uL Urine 11/23/23 Range/Units 11:02 Urine Color Yellow (Yellow) Urine Appearance Clear (CLEAR) Urine pH 7 (5-7) Ur Specific [place] 1.010 (1.005-1.030) Urine Protein Neg (Negative) Urine Glucose (UA) Norm (Normal) Urine Ketones Negative (Negative) Urine Nitrate Negative (Negative) Urine Bilirubin Neg (Negative) Ur Leukocyte Esterase Negative (Negative) Cardiac Studies: 2 Echocardiogram Ultrasound 08/26/19 Sestamibi Stress Test (Cardiology) 07/27
[2023-11-23] MEDS: lactated ringers 500 ML IV (11:53)
[2023-11-23 12:01] LABS: Blood Urea Nitrogen 15 mg/dL (8-23); Calcium 8.5 mg/dL (8.5-10.5); Carbon Dioxide 25 mmol/L (22-29); Chloride 104 mmol/L (98-107); Creatinine Clr Calc Pharmacy 90.6795; Glomerular Filtration Rate 72.9 mL/min (90-130); Glucose 100 mg/dL (65-115); Osmolality Calculated 287 mOsm/kg (285-295); Sodium 138 mmol/L (136-145)
--- NOTE | 2023-11-23 12:09 | W.PM.OPSFHP ---
Same Day Surgery H&P Indication for Procedure/HPI DATE OF PROCEDURE: November 23, 2023 CHIEF COMPLAINT/INDICATIONFOR SURGICAL PROCEDURE: Left knee degenerative joint disease PREOP DIAGNOSIS: Left knee degenerative joint disease PLANNED PROCEDURE: Operation Date: 11/23/23 13:45 Proposed Procedures p Reji Robot Total Knee Arthroplasty(Left) - Jacob Ghotra DO Medications/Allergies* Home Medications Medication Instructions Recorded Confirmed Type amlodipine 5 mg tablet 5 mg PO DAILY 01/15/22 11/23/23 History Allergies/Adverse Reactions Allergy/AdvReac Type Severity Reaction Status Date / Time No Known Allergies Allergy Verified 11/20/23 09:50 Pertinent History/Comorbid Conditions* Medical History Obesity Sleep apnea HTN (hypertension) Smoker Surgical History (Updated 02/11/22 @ 09:59 by BRIAN Bain) History of hysterectomy Social History Smoking and tobacco/nicotine status: current every day tobacco/nicotine user Quit status (tobacco/nicotine): not considering quitting Second hand smoke exposure: Yes Pertinent Exam Findings alert, oriented x 3, operative site marked and procedure specific exam findings Please refer to detailed orthopedic examination dating 10/13/2023Listed below: Examination left knee: 5 to 10 degree varus deformity appreciated she has significant medial joint space tenderness palpation able to achieve full extension pain with end ranges of flexion able to flex to roughly 115 degrees stable with varus valgus stress correctable deformity on examination. Patellar crepitus on knee range of motion as well as tenderness palpation over the retropatellar space mild lateral joint line tenderness palpation pain with Chandrika's but no palpable click stable Sandi's. Recommendations Surgery/Procedure today Other Plans: Plan to proceed to the OR today for left total knee arthroplasty?Reji robotic assisted. She is clear the preoperative clearance process she had a recheck of her UA through her catheter was a clean-catch and UA was negative today she has no symptoms at this point in time. No change in her health since visit with Dr. Maza she is cleared to proceed with surgical intervention. All questions answered at this time. She understands risk benefits complication alternatives of surgery and through shared decision make elects proceed with surgical intervention all questions answered at this time. Coding Level of Care Code Acute Code for g Fwtalita
[2023-11-23] MEDS: sodium chloride 0.9% 1,000 ML 30 ML IV (12:12)
[2023-11-23] MEDS: ceFAZolin 2,000 MG in sodium chloride 0.9% (plus) 50 ML 100 MG IV ×2 (12:12→20:13)
[2023-11-23] MEDS: tranexamic acid 1,000 mg/10mL SDV 1000 MG IV (12:35)
[2023-11-23] MEDS: ROPivacaine 0.2% Btl 100 mL 200 MG INTRA-ARTI (13:03)
[2023-11-23] MEDS: EPINEPHrine 1 mg/mL INJ XX (13:03)
[2023-11-23] MEDS: tranexamic acid 1,000 mg/10mL SDV 1000 MG XX (13:03)
[2023-11-23] MEDS: ketorolac 30 mg/mL INJ XX (13:03)
[2023-11-23] MEDS: vancomycin 1,000 MG SDV 1000 MG XX (13:45)
--- NOTE | 2023-11-23 14:16 | W.PM.BPON ---
Date of Procedure: [11/23/2023] Surgeon: Jacob Ghotra DO Eyelet Operator(s): Lang Ghotra PA-C Procedure(s) performed: Left total knee arthroplasty?Reji robotic assisted Findings of the procedure(s): Left knee degenerative joint disease underwent procedure as planned without issues or complications Estimated blood loss: 25 mL Specimen(s) removed: Tibia femur and patellar bone cuts removed Post-operative diagnosis: Left knee degenerative joint disease
--- NOTE | 2023-11-23 14:17 | P.OP_ITS ---
Operative Report Date of procedure: November 23, 2023 Surgeon: Jacob Ghotra DO Allied Health Teacher: Lang Ghotra PA-C: PA was necessary for assistance in this case with leg positioning retraction and protection of neurovascular structures as well as assistance in implantation wound closure and dressing application. Procedure: Preoperative diagnosis: Left knee degenerative joint disease Post-op diagnosis: Same Procedure done: Left total knee arthroplasty, cemented?robotic assisted Reji Implants: Lito triathlon size 4 femur CR cemented?left [place] triathlon size? 4 tibia universal baseplate cemented [place] triathlon symmetric patella size 33 mm [place] triathlon polyethylene 11mm Surgeon: Jacob Ghotra DO Estimated blood?loss: 25 mL Tourniquet 65minutes IV fluids: 1500 mL Urine output: 900 mL Complications: None Condition: stable Disposition: floor Brief History: Patient is a 63-year-old female with with chronic?left knee degenerative joint disease.? Patient has been worked up in the outpatient setting in the orthopedic office at this point time through shared decision making given? [id number] arthritis as well as failed conservative treatment, and pt would?like to proceed with a?left total knee arthroplasty.? Through shared decision making elected to proceed with surgical intervention for?left total knee arthroplasty.? We talked about continued conservative treatment and surgical intervention as far as the risk benefits complications alternatives surgical and nonsurgical treatment options.? At this point time understanding patient risks with surgery he agrees to proceed with surgical intervention.? Once again? risk with surgery include but are not?limited to make it better make it worse blood clot, heart attack, stroke, on the table, infection, injury to nerves or vessels, persistent pain, arthrofibrosis, implant failure.? Understanding these risks patient agrees to proceed with surgical intervention consent was obtained in the office.? All questions answered. Procedure: Patient was seen and evaluated in the preoperative holding area.? Consent was reviewed and signed with patient with plan for?left total knee arthroplasty.? All questions answered.? Correct extremity marked.? Patient seen and evaluated by the anesthesia department and once cleared for surgery was taken back to the operative suite.? Patient was placed into a supine position on the OR table.? All bony prominences were well-padded.? Patient was appropriately secured to the bed.? Patient underwent anesthesia per the anesthesia department.? Patient received spinal anesthesia and? Das catheter was placed.? A nonsterile tourniquet was applied to the?left thigh.? At this point in time a final timeout performed.? Patient received appropriate preoperative antibiotics and TXA. Next the?left?lower extremity was then prepped and draped in standard orthopedic fashion. Esmarch tourniquet was used exsanguinate the?left?lower extremity.? T ourniquet was insufflated to 300 mmHg. A standard anterior incision was made over midline of the knee.? Sharp scalpel excision through skin and subcutaneous tissue full-thickness skin flaps were mad e.? Fascia was elevated off of the extensor retinaculum was stable with medial parapatellar arthrotomy was then made.? The performed standard sequential releases..? Immediately on entry into the joint patient was found to have severe eburnated bone and tricompartmental arthritic changes noted.? With significant osteophyte formation.? Next the the patella was then stuffed and the knee was then flexed.?? Chase was placed superiorly around the anterior aspect of the femur this was freed of synovium and I subsequently then placed by 2 femur pins to establish my femur arrays for the Reji robot.? These were then placed bicortically and? femur array was then appropriately secured with appropriate visualization.? Next attention was turned towards the tibial rays.? These were then drilled sequent ially bicortically in parallel fashion and intraincisional.? I then placed my guide as well as my tibial array on in place.? This was appropriately secured and had excellent visualization with the Reji robot.? Next the tibial checkpoint as well as femur checkpoint were then placed.? At this point time I then subsequently established my head center as well as my medial?lateral malleoli as well as my checkpoints.? Next utilizing standard Reji technology I then mapped out the appropriate points and confirmation points around the femur as well as the tibia in standard fashion.? Once this was then done I then removed all osteophytes in preparation for dynamic testing.? All osteophytes were removed as well as I removed the ACL and the PCL was excised due to its significant tearing and degeneration noted.? At this point time the knee was brought into full extension and we performed our standard evaluation of our gap balancing stressing his?ligaments and extension as well as flexion appropriate adjustments were made to have appropriate gap balancing in both flexion and extension.? This plan for final counts.? We get a preoperative plan evaluating our implants which was a size 4 femur and a size 4 tibia.? Next we brought in the Reji robot and sequentially made our femur cuts.? All excess bony cuts were then removed.? Finally we made our tibial cut.? Once this was done a standard PCL retractor was then placed into this position I excised the medial and?lateral meniscus.? The tibial cut was then subsequently removed all excess bony debris was removed.? I then utilized a?lamina social media executive and remove the posterior osteophytes.? At this point time sized the tibia and confirmed this was a size 4.? I utilized our blunt probe to establish rotation of tibial implant.? Once this was done I then placed my tibia size 4 trial in appropriate position and then subsequently placed tibial pins to hold this into place placed a size 11 mm poly as well as a size 4 femur which was appropriately impacted in place knee was then subsequently brought into extension. Trials were then assessed,? this was stable with varus valgus stress in extension as well as had symmetrical translation when brought into flexion demonstrating symmetrical gaps. I had excellent balance gaps in flexion and extension with varus and valgus stresses.? At this point I was satisfied with these implants these were then verified and opened on the back table size 4 tibia, size 4 femur,? size 11 mm polythickness.? We did confirm appropriate gap balancing and stresses as well as alignment utilizing? Reji and were satisfied with this plan.? ?At this point time with my trials in place I then towel clip the patella everted this made appropriate measurements subsequently utilizing freehand technique performed by patellar resurfacing this was confirmed to be appropriate resection and subsequently sized to be a 33 mm symmetric.? My drill peg guides were then clamped and appropriate position and appropriate position in the patella for appropriate tracking and parallel with the joint.? Pegs were drilled trial implant was placed and the knee was then subsequently ranged and found to have excellent patellar tracking.? Femur pegs were then drilled.?? All checkpoints as well as guidepins and arrays were removed and appropriate counts made. Satisfied with our tibial placement rotation I then utilized the keel p unch and prepped the tibia.? At this point time all of our trial implants were removed.? The wound bed? was thoroughly irrigated and dried and prepped for cementation.? Cement was mixed on the back table.? Once cement was ready this was then covered onto the tibia and the tibial baseplate was then impacted and all excess cement was removed.? Next the polyethylene was then impacted into place on the tibial baseplate.? Next cement was placed onto the femur as well as under the femur implants and impacted in to place and all excess cement was extruded and removed.? Knee was taken into full extension? to clear all excess cement was removed.? Warm saline was placed over the joint.? I then towel clip patella and dried for cementation. cemented the patella into place.? This was all clamped and the cement was allowed to cure.? Thorough irrigation performed with pulse?lavage.? I then placed my periarticular injection while the cement was curing.? Once cured the knee was taken through range of motion and had excellent stability and gaps were balanced in flexion and extension.? Tourniquet was then deflated. hemostasis satisfactory with electrocautery.? Vancomycin powder was placed in the wound bed for infection prophylaxis. next I then subsequently closed the capsule with Ethibond suture as well as a running strata fix suture.? Knee was then taken through range of motion 20 times.? Next the skin was then closed in?layered fashion of running stratifix sutures of deep and subcutenous tissue and skin.? ?closed in flexion and Prineo glue was then placed over the incision this allowed to cure.? Incision was covered with melquiades, with ABDs soft roll and Esau wrap.? Patient was then awakened from anesthesia and taken to PACU in stable condition. Disposition: Patient taken to PACU in stable condition will be admitted to the floor for pain control PT/OT weight-bear as tolerated?left?lower extremity dressing changes as needed, DVT prophylaxis. Pain control. Patient will receive appropriate postoperative antibiotics. patient will be seen today by the internal medicine team for medical management.? Patient will follow up with the office in 2 weeks.? Patient understands agrees with current plan.? All questions answered.
--- NOTE | 2023-11-23 14:25 | XRR_ITS ---
PROCEDURE INFORMATION: Exam: XR Left Knee Exam date and time: 11/23/2023 2:54 PM Age: 63 years old Clinical indication: Device placement; Joint replacement hardware; Prior surgery; Surgery date: Post-operative (0-2 days); Surgery type: Lt tka; Additional info: Post L tka, do in pacu TECHNIQUE: Imaging protocol: Radiologic exam of the left knee. Views: 1 or 2 views. COMPARISON: CT knee LT [facility] [id number] 11/10/2023 5:01 PM FINDINGS: Bones/joints: A knee prosthesis is well seated and well aligned. I see no worrisome abnormality. Intra-articular air is noted. Soft tissues: Normal. XR/XR knee LT 1-2V [id number] IMPRESSION: Intact postoperative knee prosthesis
--- NOTE | 2023-11-23 14:45 | PM.PACU ---
PACU note Narrative: Patient is a 63-year-old female just underwent a left knee total arthroplasty. Pt transferred to PACU in stable condition. Dressing is dry. pt is awake and alert. Distal pulses are palpable toes are warm and well-perfused. Cap refill is normal and under 2 seconds. Unable to perform any further assessment of motor or sensory due to residual spinal anesthetic. Pain is controlled. Exam: awake Disposition: admitted
--- NOTE | 2023-11-23 15:57 | ANE.PACU2 ---
Inpatient post-anesthesia follow up: Airway intact: Yes Vital signs: Temperature 97.2 F Pulse Rate 95 Respiratory Rate 18 Blood Pressure 108/67 Pulse Oximetry 96 Oxygen Delivery Me thod Room Air Oxygen Flow Rate 6 Fraction of Inspir ed Oxygen Hydration adequate: Yes Nausea and vomiting: No Pain level: 2 Mental status: Baseline
[2023-11-23] MEDS: lactated ringers 1,000 ML 100 ML IV (16:14)
[2023-11-23] MEDS: calcium carb-vit d 600mg/400unit 1 Tablet 1 EACH PO (17:24)
[2023-11-23] MEDS: chlorhexidine gluconate 0.12% Btl 473 mL 30 ML MUCOUS MEM (17:24)
[2023-11-23] MEDS: iron polysaccharide complex 150 mg Capsule PO (17:25)
[2023-11-23] MEDS: mupirocin oint 22 gm 1 APPLIC NASAL (17:25)
[2023-11-23] MEDS: sennosides-docusate Tablet 2 TAB PO (17:25)
[2023-11-23] MEDS: docusate sodium 100 mg Capsule PO (17:25)
--- NOTE | 2023-11-23 18:31 | P.CONIM_ITS ---
Providers/Reason For Consult 2 Consulting Physician/Specialty*: Frase/Hospitalist Reason for Consult*: Hypertension, sleep apnea, tobacco use Attending Physician: Jacob Ghotra DO Primary Care Provider: BRIAN Barrow History of Present Illness History of Present Illness Shannon Fatima is a 63 year old female Who presented to [facility] on the day of admission for elective left total knee replacement by Dr. Ghotra. Procedure was done with cement and Reji assist. 25 mL estimated blood loss. Tolerated well. She had spinal anesthesia. Currently is quite restless and wanting to get up and walk around. She says the muscles in her left thigh are tight and she needs to move. I had been told that she could get up if she was not alone by physical therapy. Standing in front of her chair. Not really hurting. Has not taken any narcotic pain medication since surgery. Does not want to take narcotics if she can help it. Other than the muscle tightness, pain is tolerable currently. No reports of any difficulty breathing, chest discomfort, GI symptoms. Does have known sleep apnea but is intolerant of CPAP. History of smoking but planning to try to quit in conjunction with this surgery/hospital stay as she will not have access to cigarettes for a few weeks. Review of Systems 2 General: Reports: Other (ROS as per HPI or as noted here) Medications/Allergies Home Medications Medication Instructions Recorded Confirmed Last Taken Type hydrochlorothiazide 25 mg tablet 75 mg (3 x 25 mg) PO DAILY #270 01/17/20 11/23/23 11/22/23 Rx tabs amlodipine 5 mg tablet 5 mg PO DAILY 01/15/22 11/23/23 11/23/23 History diclofenac potassium 50 mg tablet 50 mg PO Q8H PRN pain #60 tabs 02/27/22 11/23/23 11/05/23 Rx potassium chloride 8 mEq 8 meq PO DAILY #2 tabs 11/20/23 11/23/23 11/22/23 Rx tablet,extended release sulfamethoxazole 800 1 tab PO BID 5 days #10 tabs 11/20/23 11/23/23 11/22/23 Rx mg-trimethoprim 160 mg tablet (Bactrim DS) Allergies Allergy/AdvReac Type Severity Reaction Status Date / Time No Known Allergies Allergy Verified 11/20/23 09:50 Current Medications Generic Name Dose Route Start Last Admin Trade Name Freq PRN Reason Stop Dose Admin Calcium Carbonate 1 each 11/23/23 18:00 11/23/23 17:24 Calcium Carb-Vit D 600mg/400unit 1 Tablet PO 1 each BID MARK Administration Chlorhexidine Gluconate 30 ml 11/23/23 17:00 11/23/23 17:24 Chlorhexidine Gluconate 0.12% Btl 473 Ml MUCOUS MEM 30 ml QID MARK Administration Docusate Sodium 100 mg 11/23/23 18:00 11/23/23 17:25 Docusate Sodium 100 Mg Capsule PO 100 mg BID MARK Administration Acetaminophen 1,000 mg in 100 mls @ 400 mls/hr 11/23/23 15:19 11/23/23 16:34 Acetaminophen IV 11/24/23 07:33 Infused Q8H MARK Infusion Lactated Ringer's 1,000 mls @ 100 mls/hr 11/23/23 15:19 11/23/23 16:14 Lactated Ringers IV 100 mls/hr .Q10H MARK Administration Mupirocin 1 applic 11/23/23 18:00 11/23/23 17:25 Mupirocin Oint 22 Gm NASAL 11/28/23 17:59 1 applic BID MARK Administration Protocol Polysaccharide Iron Complex 150 mg 11/23/23 18:00 11/23/23 17:25 Iron Polysaccharide Complex 150 Mg Capsule PO 150 mg BIDWM MARK Administration Senna/Docusate Sodium 2 tab 11/23/23 18:00 11/23/23 17:25 Sennosides-Docusate Tablet PO 2 tab BID MARK Administration PFSH Acute 2 PFSH: Medical History Obesity Sleep apnea HTN (hypertension) Smoker quit attempt 11/2023 Surgical History (Updated 11/23/23 @ 19:33 by Rafaela Luke MD) History of D&C History of 2 sections History of carpal tunnel release of both wrists (2021) History of hysterectomy Social History (Updated 11/23/23 @ 19:33 by Rafaela Luke MD) Smoking and tobacco/nicotine status: current every day tobacco/nicotine user Quit status (tobacco/nicotine): quit date established Planned quit date: 11/23/23 Second hand smoke exposure: Yes Vitals/I&O/Wt Last Vital Signs Temp 97.2 F L 11/23/23 14:58 Pulse 79 11/23/23 17:13 Resp 16 11/23/23 17:13 BP 108/67 11/23/23 14:58 Pulse Ox 98 11/23/23 17:13 O2 Del Method Room Air 11/23/23 17:13 O2 Flow Rate 6 11/23/23 14:43 11/23/23 11/23/23 11/23/23 06:59 14:59 22:59 Intake Total 1250 / 1250 258.5 / 1508.5 Output Total 925 / 925 Balance 325 / 325 258.5 / 583.5 Weight last 48 hrs Weight 102.058 kg Weight 102.058 kg Physical Exam 2 Narrative: Patient is awake and alert, seen standing up in front of chair in her room. Able to provide history and answer questions. Lungs are clear to auscultation bilaterally without any rales rhonchi or wheezes. Cardiovascular exam reveals a regular rate and rhythm without any murmurs noted. Left lower extremity with postsurgical dressing in place. Das catheter noted to be in place. Speech is clear. Urinary Catheter Management: Das: Cath Placed During This Visit: yes Urethral Indwelling: Yes Reason for Continuing Indwelling Catheter: Perioperative Use in Selected Surgeries Urinary Catheter Date of Insertion: 11/23/23 Data 11/23/23 11:23 11/23/23 11:23 Other Labs: Radiology Impressions Knee X-Ray 11/23/23 14:25 IMPRESSION: Intact postoperative knee prosthesis Laboratory Results WBC 6.32 10^3/uL (3.29-11.43) 11/23/23 11:23 RBC 4.31 10^6/uL (3.85-5.65) 11/23/23 11:23 Hgb 13.00 g/dL (11.27-16.99) 11/23/23 11:23 Hct 38.6 % (36-47) 11/23/23 11:23 MCV 89.6 fl (85-98) 11/23/23 11:23 MCH 30.2 pg (27-33) 11/23/23 11:23 MCHC 33.7 g/dL (30-55) 11/23/23 11:23 RDW 13.4 % (12.1-15.1) 11/23/23 11:23 Plt Count 262 10^3/cmm (157-399) 11/23/23 11:23 MPV 10.8 fL (7.4-10.4) H 11/23/23 11:23 Neut % (Auto) 61.3 % 11/23/23 11:23 Lymph % (Auto) 26.6 % 11/23/23 11:23 [place] % (Auto) 8.9 % 11/23/23 11:23 Eos % (Auto) 2.1 % 11/23/23 11:23 Baso % (Auto) 0.8 % 11/23/23 11:23 Neut # (Auto) 3.88 10^3/uL (1.8-7.7) 11/23/23 11:23 Lymph # (Auto) 1.7 10^3/uL (0.8-4.8) 11/23/23 11:23 [place] # (Auto) 0.6 10^3/uL (0.2-0.9) 11/23/23 11:23 Eos # (Auto) 0.1 10^3/uL (0.0-0.8) 11/23/23 11:23 Baso # (Auto) 0.1 10^3/uL (0.0-0.1) 11/23/23 11:23 Nucleated RBC % (auto) 0 % 11/23/23 11: Nucleated RBCs # 0.0 /100WBC 11/23/23 11:23 Sodium 138 mmol/L (136-145) 11/23/23 11:23 Potassium 4.0 mmol/L (3.5-5.1) 11/23/23 11:23 Chloride 104 mmol/L (98-107) 11/23/23 11:23 Carbon Dioxide 25 mmol/L (22-29) 11/23/23 11:23 Anion Gap 13.0 (5-19) 11/23/23 11:23 BUN 15 mg/dL (8-23) 11/23/23 11:23 Creatinine 0.8 mg/dL (0.5-0.9) 11/23/23 11:23 GFR Calculation 72.9 mL/min (90-130) L 11/23/23 11:23 Glucose 100 mg/dL (65-115) 11/23/23 11:23 Calculated Osmolality 287 mOsm/kg (285-295) 11/23/23 11:23 Calcium 8.5 mg/dL (8.5-10.5) 11/23/23 11:23 Urine Color Yellow (Yellow) 11/23/23 11:02 Urine Appearance Clear (CLEAR) 11/23/23 11:02 Urine pH 7 (5-7) 11/23/23 11:02 Ur Specific [place] 1.010 (1.005-1.030) 11/23/23 11:02 Urine Protein Neg (Negative) 11/23/23 11:02 Urine Glucose (UA) Norm (Normal) 11/23/23 11:02 Urine Ketones Negative (Negative) 11/23/23 11:02 Urine Blood Neg (Negative) 11/23/23 11:02 Urine Nitrate Negative (Negative) 11/23/23 11:02 Urine Bilirubin Neg (Negative) 11/23/23 11:02 Urine Urobilinogen Neg mg/dL (Negative) 11/23/23 11:02 Ur Leukocyte Esterase Negative (Negative) 11/23/23 11:02 Blood Type O Positive 11/23/23 11:23 Rho(D) Type Rh positive 11/23/23 11:23 Antibody Screen Negative 11/23/23 11:23 A&P Assessment and plan (1) Status post total left knee replacement using cement: POD 0 (2) HTN (hypertension): Primary hypertension, chronically on amlodipine and hydrochlorothiazide with potassium replacement (3) Sleep apnea: Intolerant of CPAP therapy (4) Smoker: A carton of cigarettes would typically last her 2-1/2 weeks. She is planning to quit coinciding with her surgery and has not smoked today. Has acknowledged that not being able to buy cigarettes herself after surgery is a good time as any to try to quit. She has told her family not to buy her any either. No known history of COPD or other chronic respiratory issues. (5) Degenerative arthritis of knee, bilateral: Has been on diclofenac for arthritis in past but not taken recently Plan Has reported agitation when awakening from anesthesia in the past Treated empirically with antibiotics in the form of Bactrim secondary to abnormal urinalysis from November 15; repeat urinalysis today normal Perioperative management as per Dr Ghotra I have continued patient's home amlodipine Currently holding home hydrochlorothiazide and potassium Will monitor blood pressures and resume when appropriate, anticipate resumption at discharge IV fluids overnight as ordered by Dr Ghotra with lactated ringers Monitor for sleep apnea, oxygen if needed Holding home diclofenac while on Toradol Has stool softeners/laxatives, iron and pain control ordered Tranexamic acid ordered Incentive spirometer ordered Oxygen if needed In regards to pain management, patient does not want to take narcotics or anything that can be addictive. Discussed with her the importance of adequate pain control to optimize her rehabilitation efforts. Explained that she currently does have residual pain control from block. We discussed alternatives such as NSAIDs which she has taken at home (diclofenac) and other adjunctive therapies. Provided support for patient's quit attempt in regards to smoking; nicotine patch ordered for use if needed. Also discussed various options for keeping her hands and mouth busy over the next few weeks and typical timeline for chemical addiction versus behavioral challenges with quitting. Reviewed with patient importance of following instructions from Dr. Ghotra as well as PT and OT and not pushing beyond their recommendations. Currently having some muscle spasms and is wanting to stand up and walk around because of this. Added methocarbamol to pain control given report of tightened muscles VTE prophylaxis: Eliquis ordered and will have a prescription for this after discharge GI Prophylaxis: not currently indicated Antibiotics: status post treatment with Bactrim last week for UTI and perioperative cefazolin Pending studies: am labs Telemetry: not currently indicated Das: in place with orders to remove tomorrow Line(s): peripheral IVs Disposition plan: Home with outpatient follow up to Dr. Ghotra/primary care provider Kristina Brady and outpatient rehabilitation anticipated. Code Status: Full Code Supportive care otherwise Findings, concerns and plans were discussed with patient and her daughter who was in the room and both were given an opportunity to ask questions Will follow while patient is here and address any acute medical issues should they arise Consult Attestations 2 Medical Necessity Statement: As per attending physician Diagnoses Status post total left knee replacement using cement Z96.652 HTN (hypertension) I10 Sleep apnea G47.30 Smoker F17.200 Degenerative arthritis of knee, bilateral M17.0
[2023-11-23] MEDS: tranexamic acid 1,000 MG/100 ML PREMIX 600 MG IV (21:28)
[2023-11-24] VITALS: BP 108/69; PULSE 68; RESP 20; TEMP 36.8; O2SAT 93
[2023-11-24] MEDS: lactated ringers 1,000 ML 100 ML IV (02:11)
[2023-11-24] MEDS: ceFAZolin 2,000 MG in sodium chloride 0.9% (plus) 50 ML 100 MG IV (03:06)
[2023-11-24 04:00] VITALS: BP 113/71; PULSE 71; RESP 18; TEMP 36.6; O2SAT 94
[2023-11-24 05:10] VITALS: BMI 37.7
[2023-11-24 05:59] LABS: Basophils % 0.2 %; Hematocrit 34.2 % (36-47); Lymphocytes # 0.8 10^3/uL (0.8-4.8); Lymphocytes % 7.1 %; Mean Corpuscular Hemoglobin 30.1 pg (27-33); Mean Corpuscular Volume 91.2 fl (85-98); Mean Platelet Volume 11.1 fL (7.4-10.4); Monocytes # 0.6 10^3/uL (0.2-0.9); Monocytes % 5.4 %; Neutrophils # 10.01 10^3/uL (1.8-7.7); Neutrophils % 86.7 %; Nucleated Red Blood Cells % 0 %; Platelet Count 246 10^3/cmm (157-399); Red Blood Count 3.75 10^6/uL (3.85-5.65); Red Cell Distribution Width 13.6 % (12.1-15.1); White Blood Count 11.54 10^3/uL (3.29-11.43)
[2023-11-24 06:17] LABS: Anion Gap 12.3 (5-19); Blood Urea Nitrogen 12 mg/dL (8-23); Carbon Dioxide 23 mmol/L (22-29); Chloride 108 mmol/L (98-107); Creatinine Clr Calc Pharmacy 125.4188; Glomerular Filtration Rate 101.6 mL/min (90-130); Glucose 184 mg/dL (65-115); Osmolality Calculated 293 mOsm/kg (285-295); Potassium 4.3 mmol/L (3.5-5.1); Sodium 139 mmol/L (136-145)
[2023-11-24] MEDS: acetaminophen 1,000 MG/100 ML PIGGYBACK 400 MG IV (06:19)
[2023-11-24 07:36] VITALS: BP 117/70; PULSE 63; RESP 18; TEMP 36.7; O2SAT 93
[2023-11-24 08:49] VITALS: PULSE 80; O2SAT 95
--- NOTE | 2023-11-24 09:22 | PC.CHAP ---
Pastoral Care Encounter/Spiritual Assessment Type of Contact [] Declined bakery sales clerk visit [] Patient/Family/Request visit [] Outpatient visit [] Follow-up visit [] Physician referral [] Code/Alert [x] Routine visit [] Staff referral [] Actively dying [] Patient sleeping [] Family support [] [] Out of room [] Palliative care [] [] Receiving care in room [] Pre-surgical visit [] Trauma [] Long length of stay [] ICU visit [] Other: Relational/Emotional Strength [x] Patient feels connected with others/family/visitors/staff [] Distress [] Loneliness/isolation [] Abandonment Spirituality of Patient [x] Person of Gilda [] Attends Jew of their Gilda [x] Believes in Prayer [] Reads Bible or Oriental Orthodox materials [] There are Spiritual issues to be addressed Material Handling Technician Interventions [x] Prayer [] Active listening [] Non-anxious presence [x] Spiritual/emotional support [] Crisis/trauma care [] Spiritual counseling [] Bereavement support [] Provided bereavement packet [] Provided Bible/devotional materials [] Provided toy/stuffed animal, coloring book to patient or family member [] Provided Communion [] Anointing/[facility] Cross [] Salvation [x] Completed spiritual assessment [] Other: Impact on Illness or Injury [] Angry [] Fearful [] Anxious [] Often cries [] Exhaustion [] Unable to work [] Unable to attend church [] Unable to walk/stand [] Unable to read [] Unable to drive [] Unable to eat/drink [] Unable to sleep [] Unable to be with family [] Patient intubated [] Other: Summary Time spent with patient 5 min
[2023-11-24] MEDS: apixaban 5 mg Tablet 2.5 MG PO (09:37)
[2023-11-24] MEDS: sennosides-docusate Tablet 2 TAB PO (09:38)
[2023-11-24] MEDS: docusate sodium 100 mg Capsule PO (09:38)
[2023-11-24] MEDS: amlodipine 5 mg Tablet PO (09:38)
[2023-11-24] MEDS: multivitamin therapeutic Tablet 1 TAB PO (09:38)
[2023-11-24] MEDS: iron polysaccharide complex 150 mg Capsule PO (09:39)
[2023-11-24] MEDS: chlorhexidine gluconate 0.12% Btl 473 mL 30 ML MUCOUS MEM (09:39)
[2023-11-24] MEDS: mupirocin oint 22 gm 1 APPLIC NASAL (09:39)
[2023-11-24] MEDS: calcium carb-vit d 600mg/400unit 1 Tablet 1 EACH PO (09:39)
--- NOTE | 2023-11-24 10:11 | P.DS_ITS ---
Discharge Providers Date of Admission: 11/23/23 14:21 Date of Discharge: November 24, 2023 Attending Provider at Admission: Jacob Ghotra DO Attending Provider at Discharge: Jacob Ghotra DO Consults: Hospitalist -Dr. Luke Primary Care Provider: BRIAN Barrow Diagnoses at Discharge Discharge Diagnosis (1) Status post total left knee replacement using cement: Status: Acute Permanent problem details: Reji-assisted (2) HTN (hypertension): Status: Chronic (3) Sleep apnea: Status: Chronic (4) Smoker: Status: Chronic Permanent problem details: quit attempt 11/2023 (5) Degenerative arthritis of knee, bilateral: Status: Chronic Reason for Visit Reason for Visit: M17.0, M25.569 Brief History: Status post left TKA Hospital Course Hospital Course Patient presented to the preoperative holding area with plan for left total knee arthroplasty after patient has been worked up in the outpatient setting for failed conservative treatment of [left] knee degenerative joint disease. Once cleared by anesthesia for surgery patient subsequently was taken back to the operative suite underwent anesthesia per anesthesia department and then subsequently underwent a [left] total knee arthroplasty. Procedure was performed without any complications patient was taken to PACU in stable condition patient recovered well in PACU and then was admitted to the floor postoperatively internal medicine was consulted and on board for medical management and assistance with care. Patient received appropriate PT/OT, postoperative antibiotics, postoperative TXA, pain control, postoperative DVT prophylaxis. Elevation and ice. Patient encouraged for knee range of motion allowed weightbearing as tolerated to the operative lower extremity. Dressing was changed as needed, labs were monitored daily. Patient recovered well postoperatively and worked well and progressed well with therapy. It was determined on postoperative day [ 1] the patient was stable for discharge from an orthopedic standpoint and medicine. Patient was comfortable with discharge and plan was discharged home. Patient received appropriate discharge instructions as well as pain medication and DVT prophylaxis postoperatively. Given appropriate instructions for dressing management. Patient will follow-up with Dr. Ghotra/orthopedics in the office in 2 weeks. All questions answered. Understand if there is any issues questions or concerns and contact the office. Physical Exam Narrative: Left knee examination: Left knee examination demonstrates dressing on in place clean dry and intact normal postoperative swelling appreciated calf soft nontender compartments soft compressible patient able to wiggle toes plantarflex and dorsiflex ankle sensations intact light touch distally. Distal pulses are palpable. Urinary Catheter Management: Das: Cath Placed During This Visit: yes, but has since been removed by the nurse Urethral Indwelling: Yes Reason for Continuing Indwelling Catheter: Decision to DC Catheter Urinary Catheter Date of Insertion: 11/23/23 Date Urinary Catheter Removed: 11/24/23 Time Urinary Catheter Discontinued: 06:25 Discharge Data Studies Completed and Pending Completed Studies During Hospitalization Category Date Time Status XR knee LT 1-2V [id number] Routine Exams 11/23/23 14:25 Completed Pending at discharge Category Date Time Status Basic Metabolic Panel AM LABS Lab 11/25/23 04:00 Ordered Basic Metabolic Panel AM LABS Lab 11/26/23 04:00 Ordered Complete Blood Count w/Auto AM LABS Lab 11/25/23 04:00 Ordered Complete Blood Count w/Auto AM LABS Lab 11/26/23 04:00 Ordered Radiology Impressions Knee X-Ray 11/23/23 14:25 IMPRESSION: Intact postoperative knee prosthesis Laboratory Results WBC 11.54 10^3/uL (3.29-11.43) H 11/24/23 05:38 RBC 3.75 10^6/uL (3.85-5.65) L 11/24/23 05:38 Hgb 11.30 g/dL (11.27-16.99) 11/24/23 05:38 Hct 34.2 % (36-47) L 11/24/23 05:38 MCV 91.2 fl (85-98) 11/24/23 05:38 MCH 30.1 pg (27-33) 11/24/23 05:38 MCHC 33.0 g/dL (30-55) 11/24/23 05:38 RDW 13.6 % (12.1-15.1) 11/24/23 05:38 Plt Count 246 10^3/cmm (157-399) 11/24/23 05:38 MPV 11.1 fL (7.4-10.4) H 11/24/23 05:38 Neut % (Auto) 86.7 % 11/24/23 05:38 Lymph % (Auto) 7.1 % 11/24/23 05:38 [place] % (Auto) 5.4 % 11/24/23 05:38 Eos % (Auto) 0.0 % 11/24/23 05:38 Baso % (Auto) 0.2 % 11/24/23 05:38 Neut # (Auto) 10.01 10^3/uL (1.8-7.7) H 11/24/23 05:38 Lymph # (Auto) 0.8 10^3/uL (0.8-4.8) 11/24/23 05:38 [place] # (Auto) 0.6 10^3/uL (0.2-0.9) 11/24/23 05:38 Eos # (Auto) 0.0 10^3/uL (0.0-0.8) 11/24/23 05:38 Baso # (Auto) 0.0 10^3/uL (0.0-0.1) 11/24/23 05:38 Nucleated RBC % (auto) 0 % 11/24/23 05:38 Nucleated RBCs # 0.0 /100WBC 11/24/23 05:38 Sodium 139 mmol/L (136-145) 11/24/23 05:38 Potassium 4.3 mmol/L (3.5-5.1) 11/24/23 05:38 Chloride 108 mmol/L (98-107) H 11/24/23 05:38 Carbon Dioxide 23 mmol/L (22-29) 11/24/23 05:38 Anion Gap 12.3 (5-19) 11/24/23 05:38 BUN 12 mg/dL (8-23) 11/24/23 05:38 Creatinine 0.6 mg/dL (0.5-0.9) 11/24/23 05:38 GFR Calculation 101.6 mL/min (90-130) 11/24/23 05:38 Glucose 184 mg/dL (65-115) H 11/24/23 05:38 Calculated Osmolality 293 mOsm/kg (285-295) 11/24/23 05:38 Calcium 8.0 mg/dL (8.5-10.5) L 11/24/23 05:38 Urine Color Yellow (Yellow) 11/23/23 11:02 Urine Appearance Clear (CLEAR) 11/23/23 11:02 Urine pH 7 (5-7) 11/23/23 11:02 Ur Specific [place] 1.010 (1.005-1.030) 11/23/23 11:02 Urine Protein Neg (Negative) 11/23/23 11:02 Urine Glucose (UA) Norm (Normal) 11/23/23 11:02 Urine Ketones Negative (Negative) 11/23/23 11:02 Urine Blood Neg (Negative) 11/23/23 11:02 Urine Nitrate Negative (Negative) 11/23/23 11:02 Urine Bilirubin Neg (Negative) 11/23/23 11:02 Urine Urobilinogen Neg mg/dL (Negative) 11/23/23 11:02 Ur Leukocyte Esterase Negative (Negative) 11/23/23 11:02 Blood Type O Positive 11/23/23 11:23 Rho(D) Type Rh positive 11/23/23 11:23 Antibody Screen Negative 11/23/23 11:23 Vitals Last Vital Signs Temp 98.1 F 11/24/23 07:36 Pulse 80 11/24/23 08:49 Resp 18 11/24/23 07:36 BP 117/70 11/24/23 07:36 Pulse Ox 95 11/24/23 08:49 O2 Del Method Room Air 11/24/23 08:49 O2 Flow Rate 6 11/23/23 14:43 Discharge Plan Discharge Patient Disposition: Home Condition: Stable Prescriptions: New Eliquis 2.5 mg tablet 2.5 mg PO BID 14 Days Qty: 28 0RF Continued sulfamethoxazole-trimethoprim [Bactrim DS] 800-160 mg tablet 1 tab PO BID 5 Days Qty: 10 0RF potassium chloride 8 mEq tablet extended release 8 meq PO DAILY Qty: 2 0RF hydrochlorothiazide 25 mg tablet 75 mg PO DAILY Qty: 270 3RF amlodipine 5 mg tablet 5 mg PO DAILY Rx Instructions: TAKE 1 TABLET BY MOUTH EVERY DAY Held diclofenac potassium 50 mg tablet 50 mg PO Q8H PRN (Reason: pain) Qty: 60 0RF Hold Instructions: Resume on 12/08/23. Discharge Orders: Discharge Order (Routine); Ordered 11/24/23 Ordered By: Jacob Ghotra Other Ambulatory Orders: Physical Therapy Eval and Treat Outpatient (Order) Timeframe: 3 Days Facility: [facility] - Location: Physical Therapy Ordered By: Jacob Ghotra Referrals: Jacob Ghotra DO [Physician] - 12/08/23 8:30 am Discharge Diet: Regular Discharge Activity: Limit activity as instructed Patient Instructions: Cephalexin (By mouth), Oxycodone, Rapid Release (By mouth), Ondansetron (By mouth), Apixaban (By mouth), Total Knee Replacement (GEN), Joint Replacement Stoplight Activity Restrictions/Additional Instructions: Susan Dressing--Keep dressing on and dry. After 3 days you can remove some of the dressing and shower. disconnect battery pack when showering. Susan dressing will stay on until follow up appt in 2 weeks or could remove it a week and reapply a Silverlon bandage dressing. The battery pack for the dressing will at 5-7 days. Battery pack can be removed and discarded once batteries . Patient may weight-bear as tolerate to the operative extremity Utilize crutches as needed Encourage knee range of motion Ice and elevate as needed for pain and swelling Take pain medication as prescribed Take antinausea medication as needed The prescribed Eliquis twice daily for the next 14 days for blood clot prevention May supplement for pain with Tylenol [id number] as needed No baths or soaks Follow-up in the orthopedic office in 2 weeks Contact the office for any questions or concerns Discharge Attestations Time Spent in Discharge Care*: less than 30 min Quality Metrics Clinical Quality Measures [ No reported AMI, CVA or VTE this stay] Coding Level of Care Code Acute Code for Chg Fwd Diagnoses Status post total left knee replacement using cement Z96.652 HTN (hypertension) I10 Sleep apnea G47.30 Smoker F17.200 Degenerative arthritis of knee, bilateral M17.0 Time Spent (min) 20
--- NOTE | 2023-11-24 11:17 | PC.NURSE ---
Patient has signed discharge paperwork and is awaiting medications from pharmacy for meds to beds.
[2023-11-24 11:34] VITALS: BP 128/79; PULSE 71; RESP 16; TEMP 36.7; O2SAT 97
[2023-11-24 11:58] VITALS: BP 128/79; PULSE 71; RESP 16; TEMP 36.7; O2SAT 97
== END 2023-11-24 12:18 | disposition home or self-care (01) ==
LOC: MEDSURG 14:21
PROVIDERS: Physician Assistant; Admitting Provider Student in an Organized Health Care Education/Training Program; PCP Nurse Practitioner Family; Visit Provider Student in an Organized Health Care Education/Training Program
PROC: 8E0Y0CZ Robotic Assisted Procedure of Lower Extremity, Open Approach (ICD-10-PCS; CPT 27447; principal; 2023-11-23 13:15)
DX: M17.12 Unilateral primary osteoarthritis, left knee (principal); J44.9 Chronic obstructive pulmonary disease, unspecified; G47.30 Sleep apnea, unspecified; I10 Essential (primary) hypertension; E66.01 Morbid (severe) obesity due to excess calories; Z68.37 Body mass index [BMI] 37.0-37.9, adult; E66.9 Obesity, unspecified; F17.200 Nicotine dependence, unspecified, uncomplicated
CPT/HCPCS: 20985; 27447; 36415; 73560; 80048; 81003; 85025; 86850; 86900; 97110; 97116; 97161; 97165; C1713; C1776; G0378; J0131; J0171; J0690; J1100; J1885; J2405; J2704; J2795; J3010; J3370; J7030; J7120

== ENCOUNTER 2023-12-02 11:23 | Outpatient (RCR) | payer OTHER, SELFPAY | END 2023-12-13 23:59 | disposition home or self-care (01) | LOC: SPT 11:23 | PROVIDERS: Visit Provider Student in an Organized Health Care Education/Training Program | DX: M17.0 Bilateral primary osteoarthritis of knee (principal) | CPT/HCPCS: 97110; 97161 ==

== ENCOUNTER → 2023-12-08 08:31 | Outpatient (BNVA) | payer OTHER, SELFPAY | PROVIDERS: PCP Nurse Practitioner Family; Visit Provider Physician Assistant | DX: Z96.652 Presence of left artificial knee joint (principal) | CPT/HCPCS: 73560; 73565 ==

== ENCOUNTER 2023-12-14 09:40 | Outpatient (RCR) | payer OTHER, SELFPAY | END 2024-01-13 23:59 | disposition home or self-care (01) | LOC: SPT 09:40 | PROVIDERS: PCP Nurse Practitioner Family; Visit Provider Student in an Organized Health Care Education/Training Program | DX: M17.0 Bilateral primary osteoarthritis of knee (principal) | CPT/HCPCS: 97110; 97112 ==

== ENCOUNTER 2024-01-14 13:12 | Outpatient (RCR) | payer OTHER, SELFPAY | END 2024-01-27 23:59 | disposition home or self-care (01) | LOC: SPT 13:12 | PROVIDERS: PCP Nurse Practitioner Family; Visit Provider Student in an Organized Health Care Education/Training Program | DX: M17.0 Bilateral primary osteoarthritis of knee (principal) | CPT/HCPCS: 97110; 97112 ==

== ENCOUNTER → 2024-02-02 08:11 | Outpatient (BNVA) | payer OTHER, SELFPAY | PROVIDERS: PCP Nurse Practitioner Family; Visit Provider Physician Assistant | DX: Z96.652 Presence of left artificial knee joint (principal); M17.0 Bilateral primary osteoarthritis of knee | CPT/HCPCS: 73560; 73565 ==

== ENCOUNTER → 2024-05-05 08:18 | Outpatient (BNVA) | payer OTHER, SELFPAY | PROVIDERS: PCP Nurse Practitioner Family; Visit Provider Physician Assistant | DX: Z96.652 Presence of left artificial knee joint (principal); M17.0 Bilateral primary osteoarthritis of knee | CPT/HCPCS: 73560; 73565 ==

== ENCOUNTER → 2024-11-22 08:32 | Outpatient (BNVA) | payer OTHER, SELFPAY | PROVIDERS: PCP Nurse Practitioner Family; Visit Provider Physician Assistant | DX: Z96.652 Presence of left artificial knee joint (principal); M17.0 Bilateral primary osteoarthritis of knee | CPT/HCPCS: 73560; 73565 ==